=== PATIENT | male | born 1965 | race Asian ===

== ENCOUNTER 2022-09-12 14:12 | Emergency (ER) | payer MEDICARE, MEDICAID ==
[~2022-09-12] VITALS: Ht 165.1 cm; Wt 63.6 kg
[~2022-09-12 14:12] MED LIST: BENZ1TAB70 PO; LITH300C3 PO; LORA0.5T83 PO; METO5TAB87 PO; QUET200T PO; SERT50TA PO
[2022-09-12] MEDS ORDERED: HALO1TAB19 PO (14:19)
[2022-09-12] MEDS ORDERED: LEVE500T8 PO (14:19)
[2022-09-12 14:20] VITALS: BP 111/70
== END 2022-09-12 15:40 | disposition left against medical advice (07) ==
LOC: EMS 14:15
DX: R45.6 Violent behavior (principal); H91.90 Unspecified hearing loss, unspecified ear; Z53.21 Procedure and treatment not carried out due to patient leaving prior to being seen by health care provider